=== PATIENT | female | born 1950 | race Caucasian/White ===

== ENCOUNTER 2023-12-17 11:27 | Emergency (ER) | payer MEDICARE ==
[2023-12-17] VITALS (8 sets, daily range): BP systolic 109–130; BP diastolic 57–79
[~2023-12-17] VITALS: Ht 165.1 cm; Wt 74.8 kg
[2023-12-17] MEDS ORDERED: DICLOFENAC75 MG PO (13:38)
[2023-12-17] MEDS ORDERED: PERCOCET 5/325M1 TAB PO (13:39)
== END 2023-12-17 13:53 | disposition home or self-care (01) ==
LOC: ED 11:27
DX: M48.54XD Collapsed vertebra, not elsewhere classified, thoracic region, subsequent encounter for fracture with routine healing (principal)